=== PATIENT | male | born 1960 | race Caucasian/White ===

== ENCOUNTER 2022-03-01 10:57 | Day surgery (SDC) | payer OTHER, SELFPAY ==
[2022-02-25 12:37] VITALS: BMI 28.3
--- NOTE | 2022-02-28 09:56 | P.CONAN_ITS ---
HPI - Anesthesia Eval Consult details Narrative: 61yo M for Colonoscopy [facility] Past Medical History Medical History (Updated 02/22/22 @ 18:08 by Laurie Talbot, RN) Diverticulosis Elevated cholesterol History of meningitis HTN (hypertension) Surgical History Surgical History (Updated 02/22/22 @ 18:08 by Laurie Talbot, RN) History of appendectomy History of colonoscopy Social History Social History Patient Tobacco Use Status: Former Tobacco user Meds Allergies Allergy/AdvReac Type Severity Reaction Status Date / Time latex Allergy Rash Verified 03/01/22 11:13 Penicillins Allergy Unknown Verified 03/01/22 11:13 Home Medications Medication Instructions Recorded Confirmed Last Taken Type flaxseed oil 1,000 mg capsule 1,000 mg PO DAILY 02/22/22 02/22/22 Unknown History hydrochlorothiazide 12.5 mg capsule 12.5 mg PO DAILY 02/22/22 02/22/22 Unknown History lisinopril 20 mg tablet 20 mg PO DAILY 02/22/22 02/22/22 Unknown History metoprolol succinate 25 mg capsule 25 mg PO DAILY 02/22/22 02/22/22 Unknown History sprinkle, ext. release 24 hr saw palmetto 450 mg capsule 450 mg PO BID 02/22/22 02/22/22 Unknown History simvastatin 40 mg tablet 40 mg PO BEDTIME 02/22/22 02/22/22 Unknown History Exam Exam Date and Time: February 28, 2022 0956 Height,Weight and Vital Signs: Height 5 ft 7 in Weight 82.1 kg Assessment and Plan Assessment Anesthesia Assessment: Chart Reviewed
[2022-03-01] MEDS: Lactated Ringers 1,000 ML 100 ML IVCONT (11:19)
[2022-03-01 11:36] VITALS: BP 131/65; PULSE 80; RESP 18; TEMP 36.7; O2SAT 98
--- NOTE | 2022-03-01 12:04 | MHC.SHP ---
Pre-Procedural Eval Section A Date of Service: 03/01/22 Section B Chief Complaint: change in bowels Details of Present Illness: see H&P no changes Relevant Family History (Specify if Yes): No Relevant Social History: None Present Medications: see Short Stay Collaborative assessment Medical History: No relevant PMH History of Previous Operations: No relevant previous surgery Allergies: Allergies Allergy/AdvReac Type Severity Reaction Status Date / Time latex Allergy Rash Verified 03/01/22 11:13 Penicillins Allergy Unknown Verified 03/01/22 11:13 Review of Systems Sugical H&P ROS: Negative: Constitution, Cardiovascular, Respiratory, Neurological, Psychiatric, Hem-Onc, Allergic/Immunologic, Gastrointestinal, Genitourinary, Musculoskeletal, Integumentary, Endocrine and Eyes/Ears/Nose/Throat Exam Surgical H&P Exam: Normal: HEENT, Normal: Heart, Normal: Lungs, Normal: Extremities, Normal: Abdomen, Normal: Skin and Normal: Neurological Plan Diagnosis/Plan: Unchanged I have reviewed the history and physical and performed a pertinent physical examination on my patient. No changes have occurred unless specified.
[2022-03-01 12:45] VITALS: BP 108/65; PULSE 65; RESP 16; TEMP 36.3; O2SAT 97
--- NOTE | 2022-03-01 12:53 | PM.OP ---
Brief Operative Note Date of Service: 03/01/22 Pre-op diagnosis: screening Post-op diagnosis: same Surgeon: David Torres Anesthesia: MAC Was an Radio Maintainer used for this Procedure?: No Estimated blood loss (mL): 2 Pathology: other Condition: stable Disposition: PACU
[2022-03-01 13:00] VITALS: BP 116/60; PULSE 77; RESP 16; O2SAT 97
[2022-03-01 13:15] VITALS: BP 125/65; PULSE 77; RESP 16; TEMP 36.3; O2SAT 99
--- NOTE | 2022-03-02 01:06 | OP_ITS ---
SURGEON: David Torres MD INDICATIONS: Colon cancer screening. PREOPERATIVE DIAGNOSIS: POSTOPERATIVE DIAGNOSIS: PROCEDURE PERFORMED: Colonoscopy to the terminal ileum with snare polypectomy and biopsy. ESTIMATED BLOOD LOSS: COMPLICATIONS: ANESTHESIA: Medications; monitored anesthesia care. ASSISTANTS: SPECIMENS: DESCRIPTION OF PROCEDURE: History and physical performed. The risks and benefits of the procedure were explained to the patient. Informed consent was obtained. The patient was placed in the left lateral decubitus position. A digital rectal exam was performed and was found to be normal. The Olympus pediatric videocolonoscope was introduced into the rectum and advanced to the cecum without difficulty. The cecum was identified by transillumination, palpation, and identification of the ileocecal valve. Examination was performed. The scope was removed. He tolerated the procedure well and was taken to recovery in stable condition. FINDINGS: The terminal ileum was examined and appeared normal. The visualized colonic mucosa was normal. The quality of the prep was good in the right colon where a total of 3 polyps which were removed with a combination of snare and biopsy forceps. All measured less than 10 mm. No other polyps were identified. There was mild diverticulosis of the sigmoid. Retroflexed examination showed small internal hemorrhoids. IMPRESSION: Colon polyps. RECOMMENDATION: Follow up the biopsy results. MD HAMLET Gibson/EDMONDL / [id number]
== END 2022-03-01 13:30 | disposition home or self-care (01) ==
PROVIDERS: PCP Internal Medicine; Visit Provider Internal Medicine Gastroenterology
PROC: 0DJD8ZZ Inspection of Lower Intestinal Tract, Via Natural or Artificial Opening Endoscopic (ICD-10-PCS; CPT 45378; principal; 2022-03-01 12:10)
DX: R19.4 Change in bowel habit (principal); Z86.010 Personal history of colon polyps; D12.2 Benign neoplasm of ascending colon; K57.30 Diverticulosis of large intestine without perforation or abscess without bleeding; K64.8 Other hemorrhoids; I10 Essential (primary) hypertension; E78.00 Pure hypercholesterolemia, unspecified; Z79.899 Other long term (current) drug therapy; Z88.0 Allergy status to penicillin; Z91.040 Latex allergy status; Z87.891 Personal history of nicotine dependence
CPT/HCPCS: 45385; 45380; 88305

== ENCOUNTER 2022-03-06 11:36 | Outpatient (REF) | payer OTHER, SELFPAY ==
[2022-03-06 11:55] LABS: MANUAL DIFF FLAG NO
[2022-03-06 13:35] LABS: Basophils Absolute Auto 0.1 X10*3/uL (0.0-0.2); Basophils Percent Auto 0.6 % (0-2); Eosinophils Absolute Auto 0.3 X10*3/uL (0.0-0.4); Eosinophils Percent Auto 3.5 % (0-4); Hematocrit 42.4 % (42.0-52.0); Hemoglobin 14.6 g/dl (14.0-18.0); Imm Gran Abs Auto 0.03 X10*3/uL (0.00-0.03); Imm Gran Pct Auto 0.4 % (0.0-0.4); Lymphocytes Percent Auto 23.2 % (20-40); Mean Corpuscular HGB Conc 34.4 g/dl (31.0-36.0); Mean Corpuscular Hemoglobin 30.9 pg (27.0-33.0); Mean Corpuscular Volume 89.6 fL (80.0-98.0); Mean Platelet Volume 10.6 fL (9.4-12.4); Monocytes Percent Auto 11.3 % (2-11); Neutrophils Absolute Auto 5.2 x10*3/uL (2.0-8.3); Platelet Count 267 X10*3/uL (160-400); Red Blood Count 4.73 X10*6/uL (4.60-5.80); Red Cell Distribution Width 12.7 % (11.0-16.0); White Blood Count 8.5 X10*3/uL (4.8-10.8)
[2022-03-06 14:19] LABS: Alanine Aminotransferase 18 U/L (0-40); Albumin Level 4.6 g/dL (3.5-5.0); Alkaline Phosphatase 71 U/L (39-117); Aspartate Amino Transferase 18 U/L (5-37); Bilirubin Direct 0.5 mg/dL (0.0-0.5); Bilirubin Total 1.2 mg/dL (0.0-1.0); Blood Urea Nitrogen 17 mg/dL (9-16); Estimated Glomerular Filt Rate > 60; Lipase 70 U/L (8-78); Total Protein 7.5 g/dL (6.5-8.0)
== END 2022-03-06 11:37 | disposition home or self-care (01) ==
LOC: HO.LAB 11:36
PROVIDERS: PCP Internal Medicine; Visit Provider Internal Medicine Gastroenterology
DX: R14.0 Abdominal distension (gaseous) (principal); R10.32 Left lower quadrant pain
CPT/HCPCS: 36415; 80076; 82565; 83690; 84520; 85025

== ENCOUNTER 2022-03-12 14:03 | Outpatient (REF) | payer OTHER, SELFPAY ==
--- NOTE | ~2022-03-12 | CT_ITS ---
EXAMINATION: CT ABDOMEN AND PELVIS WITH CONTRAST CLINICAL INFORMATION: Left lower quadrant pain and bloating. COMPARISON: None. TECHNIQUE: Multidetector volumetric images were obtained from the superior aspect of the liver through the pubic symphysis following administration 85 mL of Omnipaque 350 intravenous contrast. Sagittal and coronal reformatted images were obtained on the technologist's workstation. Oral contrast: No This CT examination was performed using dose optimization techniques as appropriate, variously including the following: *Automated exposure control *Adjustment of mA and/or kV according to patient size (this includes techniques or standardized protocols for targeted exams where dose is matched to indication/reason for exam; i.e. extremities or head) *Use of iterative reconstruction technique DLP: 345 mGy-cm FINDINGS: LUNG BASES: The lung bases are clear. Heart size is normal. LIVER, GALLBLADDER, AND BILIARY TREE: The liver is normal in size, shape, and attenuation. No focal hepatic lesion or biliary ductal dilatation is present. The gallbladder is unremarkable with no evidence of radiopaque gallstones, gallbladder wall thickening, or obvious pericholecystic inflammatory changes. PANCREAS: Unremarkable. SPLEEN: Unremarkable. ADRENAL GLANDS: Unremarkable. KIDNEYS AND URETERS: The kidneys are normal in size, shape, and attenuation. No hydronephrosis, hydroureter, or calculi seen. No perinephric stranding. BLADDER: There is mild thickening of the base in the posterior bladder wall. No radiopaque calculi seen. GASTROINTESTINAL TRACT: There is scattered stool, diverticula and gas seen throughout the colon without distention or diverticulitis. Oral contrast-opacified small bowel loops are normal caliber. Appendix is not visualized. ABDOMINAL WALL: No significant hernia is appreciated. LYMPH NODES: Normal. VASCULAR: There is atherosclerotic changes of abdominal aorta without aneurysmal dilatation. PELVIC VISCERA: The prostate gland is mildly enlarged. OSSEOUS STRUCTURES: Unremarkable. CT/CT abdomen pelvis w con IMPRESSION: Mild constipation. Scattered colonic diverticulosis without diverticulitis. No acute intra-abdominal process seen. Fleischner guidelines were followed.
[2022-03-12] MEDS: iohexoL 350 MG/ML 100 ML INFUS..BTL IV (16:38)
[2022-03-12] MEDS: Barium Sulfate Oral (Mocha) 450 ML ORAL.SUSP 900 ML PO (16:42)
== END 2022-03-12 14:04 | disposition home or self-care (01) ==
LOC: HO.CT 14:03
PROVIDERS: PCP Internal Medicine; Visit Provider Internal Medicine Gastroenterology
DX: R14.0 Abdominal distension (gaseous) (principal); R10.32 Left lower quadrant pain
CPT/HCPCS: 74177; Q9967

== ENCOUNTER 2023-08-01 09:59 | Day surgery (SDC) | payer OTHER, SELFPAY ==
--- NOTE | 2023-07-31 09:39 | HO.ANESPROP2 ---
Documented by User: Chica Porter NP 07/31/23 09:40 HPI - Anesthesia Eval Consult details Narrative: 63yo M for Upper Endoscopy [facility] Past Medical History Medical History Diverticulosis History of meningitis Elevated cholesterol HTN (hypertension) Surgical History Surgical History History of appendectomy History of colonoscopy Social History Social History Patient Tobacco Use Status: Former Tobacco user Quit Date: 20 yrs ago Meds Allergies Allergy/AdvReac Type Severity Reaction Status Date / Time latex Allergy Rash Verified 08/01/23 10:17 Penicillins Allergy Unknown Verified 08/01/23 10:17 Sulfa (Sulfonamide Allergy Unknown Verified 08/01/23 10:17 Antibiotics) Home Medications Medication Instructions Recorded Confirmed Last Taken Type flaxseed oil 1,000 mg capsule 1,000 mg PO DAILY 02/22/22 02/22/22 07/27/23 History hydrochlorothiazide 12.5 mg capsule 12.5 mg PO DAILY 02/22/22 02/22/22 Unknown History lisinopril 20 mg tablet 20 mg PO DAILY 02/22/22 02/22/22 Unknown History metoprolol succinate 25 mg capsule 25 mg PO DAILY 02/22/22 02/22/22 08/01/23 08:00 History sprinkle, ext. release 24 hr saw palmetto 450 mg capsule 450 mg PO BID 02/22/22 02/22/22 Unknown History simvastatin 40 mg tablet 40 mg PO BEDTIME 02/22/22 02/22/22 Unknown History omeprazole 20 mg capsule,delayed 20 mg PO QAM 07/31/23 07/31/23 Unknown History release Assessment and Plan Assessment Anesthesia Assessment: Chart Reviewed Documented by User: Jacqueline Woods MD 08/01/23 10:59 [facility] Past Medical History Medical History Diverticulosis History of meningitis Elevated cholesterol HTN (hypertension) Surgical History Surgical History History of appendectomy History of colonoscopy History of Problems with Anesthesia: No Social History Social History Patient Tobacco Use Status: Former Tobacco user Quit Date: 20 yrs ago Meds Allergies Allergy/AdvReac Type Severity Reaction Status Date / Time latex Allergy Rash Verified 08/01/23 10:17 Penicillins Allergy Unknown Verified 08/01/23 10:17 Sulfa (Sulfonamide Allergy Unknown Verified 08/01/23 10:17 Antibiotics) Home Medications Medication Instructions Recorded Confirmed Last Taken Type flaxseed oil 1,000 mg capsule 1,000 mg PO DAILY 02/22/22 02/22/22 07/27/23 History hydrochlorothiazide 12.5 mg capsule 12.5 mg PO DAILY 02/22/22 02/22/22 Unknown History lisinopril 20 mg tablet 20 mg PO DAILY 02/22/22 02/22/22 Unknown History metoprolol succinate 25 mg capsule 25 mg PO DAILY 02/22/22 02/22/22 08/01/23 08:00 History sprinkle, ext. release 24 hr saw palmetto 450 mg capsule 450 mg PO BID 02/22/22 02/22/22 Unknown History simvastatin 40 mg tablet 40 mg PO BEDTIME 02/22/22 02/22/22 Unknown History omeprazole 20 mg capsule,delayed 20 mg PO QAM 07/31/23 07/31/23 Unknown History release Exam Airway Mallampati Class: III TM Dist: >3cm Neck ROM: Full Partial: Upper Loose/Missing/Broken Teeth: Yes, Upper and Lower Heart: RRR Lungs: CTA Assessment and Plan Assessment Anesthesia Assessment: Anesthesia Plan Discussed Final Anesthetic Review History of Problems with Anesthesia: No NPO: Yes ASA Class: II Final Preanesthetic Review: Meds/Allgs Chart Reviewed, Consent Obtained/Reviewed and Anes Risks/Benef Reviewed Patient Risk: Low Procedure Risk: Intermediate Anesthetic Plan Anesthetic Plan: MAC: Disposition: Standard PACU
[2023-08-01 10:17] VITALS: BMI 29.4
[2023-08-01 10:26] VITALS: BP 150/76; PULSE 84; RESP 16; TEMP 36.2; O2SAT 98
--- NOTE | 2023-08-01 11:08 | MHC.SHP ---
Pre-Procedural Eval Section A Date of Service: 08/01/23 Section B Chief Complaint: Generalized abdominal pain Details of Present Illness: see H&P no changes Relevant Family History (Specify if Yes): No Relevant Social History: None Present Medications: see Short Stay Collaborative assessment Medical History: No relevant PMH Allergies: Allergies Allergy/AdvReac Type Severity Reaction Status Date / Time latex Allergy Rash Verified 08/01/23 10:17 Penicillins Allergy Unknown Verified 08/01/23 10:17 Sulfa (Sulfonamide Allergy Unknown Verified 08/01/23 10:17 Antibiotics) Review of Systems Sugical H&P ROS: Negative: Constitution, Cardiovascular, Respiratory, Neurological, Psychiatric, Hem-Onc, Allergic/Immunologic, Gastrointestinal, Genitourinary, Musculoskeletal, Integumentary, Endocrine and Eyes/Ears/Nose/Throat Exam Surgical H&P Exam: Normal: HEENT, Normal: Heart, Normal: Lungs, Normal: Extremities, Normal: Abdomen, Normal: Skin and Normal: Neurological Plan Diagnosis/Plan: Unchanged I have reviewed the history and physical and performed a pertinent physical examination on my patient. No changes have occurred unless specified. Time Spent With Patient Time: Total time managing care of this patient today ____ minutes.
[2023-08-01 11:40] VITALS: BP 99/63; PULSE 74; RESP 18; TEMP 36.6; O2SAT 97
[2023-08-01 11:55] VITALS: BP 109/73; PULSE 76; RESP 18; O2SAT 95
[2023-08-01 12:02] VITALS: BP 125/76; PULSE 74; RESP 18; TEMP 36.6; O2SAT 97
== END 2023-08-01 12:31 | disposition home or self-care (01) ==
PROVIDERS: PCP Internal Medicine; Visit Provider Internal Medicine Gastroenterology
PROC: 0DJ08ZZ Inspection of Upper Intestinal Tract, Via Natural or Artificial Opening Endoscopic (ICD-10-PCS; CPT 43235; principal; 2023-08-01 11:30)
DX: R10.84 Generalized abdominal pain (principal); R11.0 Nausea; K29.80 Duodenitis without bleeding; K31.89 Other diseases of stomach and duodenum; K22.4 Dyskinesia of esophagus; I10 Essential (primary) hypertension; E78.00 Pure hypercholesterolemia, unspecified; K57.30 Diverticulosis of large intestine without perforation or abscess without bleeding; Z79.899 Other long term (current) drug therapy; Z87.891 Personal history of nicotine dependence; Z88.0 Allergy status to penicillin; Z91.040 Latex allergy status
CPT/HCPCS: 43239; 88305; 88342; J2704

== ENCOUNTER 2023-09-12 12:47 | Outpatient (REF) | payer OTHER, SELFPAY ==
[2023-09-12 14:45] LABS: Hematocrit 43.5 % (42.0-52.0); Hemoglobin 14.7 g/dl (14.0-18.0); Mean Corpuscular HGB Conc 33.8 g/dl (31.0-36.0); Mean Corpuscular Hemoglobin 30.6 pg (27.0-33.0); Mean Corpuscular Volume 90.6 fL (80.0-98.0); Mean Platelet Volume 10.5 fL (9.4-12.4); Platelet Count 235 X10*3/uL (160-400); Red Cell Distribution Width 13.2 % (11.0-16.0); White Blood Count 7.5 X10*3/uL (4.8-10.8)
[2023-09-12 15:13] LABS: C Reactive Protein < 0.10 mg/dL (< or = 0.50)
[2023-09-12 15:24] LABS: Erythrocyte Sedimentation Rate 8 MM/HR (0-15)
[2023-09-15 13:53] LABS: Immunoglobulin A 161 mg/dL (70-320)
[2023-09-16 17:38] LABS: Gliadin Deamidated IgA Ab 8.4 U/mL; Gliadin Deamidated IgG Ab >250.0 U/mL
[2023-09-17 12:54] LABS: Endomysial IgA Antibody Negative (Negative)
[2023-09-18 21:48] LABS: Transglutaminase Ab IgG <1.0 U/mL; Transglutaminase IgA 18.5 U/mL
== END 2023-09-12 12:48 | disposition home or self-care (01) ==
LOC: HO.LAB 12:47
PROVIDERS: PCP Internal Medicine; Visit Provider Internal Medicine Gastroenterology
DX: K29.80 Duodenitis without bleeding (principal)
CPT/HCPCS: 36415; 82784; 85027; 85652; 86140; 86231; 86258; 86364

== ENCOUNTER 2025-02-10 09:26 | Outpatient (REF) | payer OTHER, SELFPAY ==
--- NOTE | ~2025-02-10 | CT_ITS ---
CLINICAL HISTORY: ABDOMINAL MASS,SWELLING CT ABDOMEN AND PELVIS WITH CONTRAST Comparison: CT/SR - CT ABDOMEN PELVIS W CON - 03/12/22 16:09 EDT Findings: The lung bases are clear. No acute abnormalities in the solid organs. No enhancing mass lesion. No urolithiasis. The gallbladder is contracted. Atherosclerotic changes in the normal caliber abdominal aorta. Multiple nonenlarged mesenteric, retroperitoneal, iliac and inguinal lymph nodes are nonspecific. No pathologically enlarged lymph node or peritoneal mass lesion. No bowel obstruction, pneumoperitoneum, or pneumatosis. No ascites or organized fluid collection. No significant mesenteric or paracolic edema. Colonic diverticulosis. No acute diverticulitis. Appendix is not identified with certainty. No significant inflammatory changes are seen in its expected location. Small fat containing left inguinal hernia. The prostate is mildly enlarged with AP x transverse dimensions of 4.0 x 5.0 cm. There is mass effect on the urinary bladder base. There is urinary bladder wall thickening. Abdominal wall is intact. No destructive osseous lesion. IMPRESSION: 1. No obstructive or acute inflammatory changes in the gastrointestinal tract. 2. Urinary bladder wall thickening most likely related to outlet obstruction in the setting of prostatomegaly. 3. No acute obstructive uropathy or urolithiasis. 4. Diverticulosis coli. This document has been electronically signed by: Angle Blake DO on 02/10/2025 20:46:11
--- OUTSIDE RECORDS SUMMARY | 2025-02-10 09:43 | XMS_ITS | Patient Health Record ---
Author Organization [facility] Address [address] [place] [id number] Care Team Providers Care Associate Accountant Name Role Phone Lola DORSEY, Wayne Primary Care Provider David Wilburn Jr Unavailable [phone] Allergies Allergen (clinical drug ingredient) Drug/Non Drug Allergy documented on EMR Reaction Allergy Type Onset Date Status Penicillin Unknown Drug Allergy Active Latex Latex Unknown Allergy Active Reason For Referral No Information Medications Medication SIG (Take, Route, Frequency, Duration) Notes Start Date End Date Status Lisinopril 30 MG 1 tablet Oral Once a day for 90 days Active Flaxseed Oil 1000 MG as directed Orally Active hydroCHLOROthiazide 12.5 MG Oral for 90 Active Golytely 236 GM 4000 ML Orally 12/30/2024 Active Simvastatin 40 MG Oral for 90 Active Omeprazole 40 MG TAKE 1 CAPSULE BY [facility] EVERY DAY 30 MINUTES BEFORE MORNING MEAL for 90 Active Dicyclomine HCl 20 MG 1 tablet Orally 2- 4 times a day 03/05/2022 Active Saw Harrison 450 MG as directed Orally Active Immunizations Vaccine Route Administration Date Status Comme nts Influenza Unknown 01/24/2022 Refused Influenza Unknown 06/25/2023 Refused Social History Tobacco Use: Social History Observation Description Date Details (start date - stop date) Former Smoker NA - NA Tobacco Use/Smoking Question Answer Notes Patient is a former smoker How long has it been since you last smoked? > 10 years Alcohol Screen Question Answer Notes Did you have a drink contain ing alcohol in the past year? Yes How often did you have a dri nk containing alcohol in the past year? Never (0 point) How many drinks did you have on a typical day when you were drinking in the past year? 1 or 2 drinks (0 point) How often did you have 6 or more drinks on one occasion in the past year? Never (0 point) Points 0 Interpretation Negative Problems Problem Type SNOMED Code ICD Code Onset Dates Problem Status W/U Status Risk Notes Problem 434224841 Colon cancer screening (Z12.11) Active confirmed Problem 099836623 Bloating (R14.0) Active confirmed Problem 555748512 Change in bowel habits (R19.4) Active confirmed Problem 048589818 Generalized abdominal pain (R10.84) Active confirmed Problem 163371328 Nausea (R11.0) Active confirmed Problem Duodenitis (43492101) Duodenitis (K29.80) Active confirmed Problem Abnormal celiac antibody panel (R89.4) Active confirmed Problem 087926254 Gastroesophageal reflux disease without esophagitis (K21.9) Active confirmed Problem 83476124 Irritable bowel syndrome, unspecified type (K58.9) Active confirmed Problem 997412753 LLQ pain (R10.32) Active confirmed Vital Signs Temperature 97.8 degrees Fahrenheit 03/31/2024 Blood pressure diastolic 77 mm Hg 12/30/2024 Height 67 in 12/30/2024 Blood pressure systolic 111 mm Hg 12/30/2024 Weight 184 lbs 12/30/2024 BMI 28.82 kg/m2 12/30/2024 Encounters Encounter Location Date Provider Diagnosis [facility] [address] [place] [id number] 03/31/2024 David Torres Jr Gastroesophageal reflux disease without esophagitis K21.9 ; Duodenitis K29.80 and Irritable bowel syndrome, unspecified type K58.9 [facility] [address] [place] [id number] 12/30/2024 David Torres Jr Abdominal mass, unspecified abdominal location R19.00 ; Abdominal pain R10.9 ; Colon cancer screening Z12.11 and Abnormal celiac antibody panel R89.4 Assessments Encounter Date Diagnosis (ICD Code) Assessment Notes Treatment Notes Treatment Clinical Notes Section Notes 03/31/2024 Duodenitis (ICD-10 - K29.80) He is doing well . We discussed that it is laboratory tests are indeterminate for celiac disease. He will continue to follow a gluten-free diet. He will be due for followup colonoscopy next year. Repeat endoscopy can be considered at this time for further evaluation of his indeterminate duodenitis/celiac disease. 03/31/2024 Gastroesophageal reflux disease without esophagitis (ICD-10 - K21.9) Low FODMAP diet material was printed He is doing well. We discussed that it is laboratory tests are indeterminate for celiac disease. He will continue to follow a gluten-free diet. He will be due for followup colonoscopy next year. Repeat endoscopy can be considered at this time for further evaluation of his indeterminate duodenitis/celiac disease. 12/30/2024 Abdominal pain (ICD-10 - R10.9) We discussed hi s symptoms today. He will have further evaluation with CT of the abdomen pelvis, laboratory studies, and he will be scheduled for upper endoscopy and colonoscopy. He understands risks and benefits of both procedures and agrees to proceed. He is advised to stop flaxseed oil and 1 week before the procedure and hydrochlorothiazide the day before the procedure. He will continue taking dicyclomine which seems to help his symptoms. 12/30/2024 Abdominal mass, unspecified abdominal location (ICD-10 - R19.00) We discussed h is symptoms today. He will have further evaluation with CT of the abdomen pelvis, laboratory studies, and he will be scheduled for upper endoscopy and colonoscopy. He understands risks and benefits of both procedures and agrees to proceed. He is advised to stop flaxseed oil and 1 week before the procedure and hydrochlorothiazide the day before the procedure. He will continue taking dicyclomine which seems to help his symptoms. 03/31/2024 Irritable bowel syndrome, unspecified type (ICD-10 - K58.9) He is doing wel l. We discussed that it is laboratory tests are indeterminate for celiac disease. He will continue to follow a gluten-free diet. He will be due for followup colonoscopy next year. Repeat endoscopy can be considered at this time for further evaluation of his indeterminate duodenitis/celiac disease. 12/30/2024 Colon cancer screening (ICD-10 - Z12.11) We discussed his symptoms today. He will have further evaluation with CT of the abdomen pelvis, laboratory studies, and he will be scheduled for upper endoscopy and colonoscopy. He understands risks and benefits of both procedures and agrees to proceed. He is advised to stop flaxseed oil and 1 week before the procedure and hydrochlorothiazide the day before the procedure. He will continue taking dicyclomine which seems to help his symptoms. 12/30/2024 Abnormal celiac antibody panel (ICD-10 - R89.4) We discussed hi s symptoms today. He will have further evaluation with CT of the abdomen pelvis, laboratory studies, and he will be scheduled for upper endoscopy and colonoscopy. He understands risks and benefits of both procedures and agrees to proceed. He is advised to stop flaxseed oil and 1 week before the procedure and hydrochlorothiazide the day before the procedure. He will continue taking dicyclomine which seems to help his symptoms. Plan Of Treatment Pending Test Test Name Order Date BUN 12/30/2024 BUN 03/04/2022 CREATININE 12/30/2024 CREATININE 03/04/2022 LIVER PROFILE 12/30/2024 LIVER PROFILE 03/04/2022 LIPASE 12/30/2024 LIPASE 03/04/2022 CRP 09/12/2023 CBC w DIFF 12/30/2024 CBC w DIFF 08/11/2023 CBC w/o DIFF 03/04/2022 CBC w/o DIFF 09/12/2023 SED RATE (ESR) 09/12/2023 CELIAC PANEL #10 09/12/2023 CELIAC PANEL #10 08/11/2023 CT ABD & PELVIS WITH CONTRAST 03/04/2022 Future Test Test Name Order Date UPPER GI ENDOSCOPY 06/25/2023 UPPER GI ENDOSCOPY 12/30/2024 COLONOSCOPY 12/30/2024 CT ABD & PELVIS WITH CONTRAST 12/30/2024 Insurance Providers Payer Name Payer Address Payer Phone Subscriber Number Group Number Insured Name Patient Relationship to Insured Coverage Start Date Coverage End Date [facility] [address] [place] [phone] [id number] GARY OREILLY Self - patient is the insured Medical (General) History Medical History History ICD Code hypertension elevated cholesterol Diverticulosis Colonoscopy 03/01/22, tubular adenomas x3, three-year followup Meningitis Duodenitis, EGD 08/01/23,? Celiac disease, indeterminate antibody panel Surgical History Surgery Date(Month/Year) appendectomy
[2025-02-10] MEDS: iohexoL 350 MG/ML 100 ML INFUS..BTL 85 ML IV (12:01)
[2025-02-10] MEDS: Barium Sulfate Oral (Vanilla) 450 ML ORAL.SUSP 900 ML PO (12:02)
[2025-02-11 08:10] LABS: Creatinine POC 1.0 mg/dL (0.5-1.4); GFR POC > 60
== END 2025-02-10 09:27 | disposition home or self-care (01) ==
LOC: HO.CT 09:26
PROVIDERS: PCP Internal Medicine; Visit Provider Internal Medicine Gastroenterology
DX: R19.00 Intra-abdominal and pelvic swelling, mass and lump, unspecified site (principal)
CPT/HCPCS: 74177; 82565; Q9967

== ENCOUNTER → 2025-02-10 09:28 | Outpatient (BNV) | payer OTHER, SELFPAY | PROVIDERS: PCP Internal Medicine; Visit Provider Radiology Diagnostic Radiology | DX: K57.30 Diverticulosis of large intestine without perforation or abscess without bleeding (principal); N32.89 Other specified disorders of bladder | CPT/HCPCS: 74177 ==